=== PATIENT | male | born 1995 | race Caucasian/White ===

== ENCOUNTER 2025-09-06 14:46 | Emergency (ER) | payer SELFPAY ==
[~2025-09-06] VITALS: Ht 185.4 cm; Wt 65.8 kg
== END 2025-09-06 19:43 | disposition left against medical advice (07) ==
LOC: ER 14:46
DX: R07.9 Chest pain, unspecified (principal); R06.02 Shortness of breath; Z53.29 Procedure and treatment not carried out because of patient's decision for other reasons
CPT/HCPCS: 99281